=== PATIENT | female | born 1970 | race Caucasian/White ===

== ENCOUNTER 2016-11-07 09:56 | Emergency (ER) | payer BC ==
[2016-11-07 10:41] VITALS: BP 89/61
[2016-11-07] MEDS ORDERED: Acetaminophen PED LIQ* 160 MG/5 ML UDC PO ONE (11:54)
--- NOTE | 2016-11-07 11:57 | UC ---
Throat Pain/Nasal Sunny HPI - HPI Summary HPI Summary: ONSET OF SEVERE ST AND RIGHT EAR PAIN YESTERDAY. HAS FEVER TMAX 102.5. HAS SOME NAUSEA. . - History of Current Complaint Chief Complaint: UCGeneralIllness Stated Complaint: SORE THROAT Time Seen by Provider: 11/07/16 11:33 Hx Obtained From: Patient Hx Last Menstrual Period: 10/23/16 Pain Intensity: 6 Pain Scale Used: 0-10 Numeric - Allergies/Home Medications Allergies/Adverse Reactions: Allergies Allergy/AdvReac Type Severity Reaction Status Date / Time Acetaminophen [From DayQuil] Allergy Hives Verified 11/07/16 10:35 Dextromethorphan Allergy Hives Verified 11/07/16 10:35 [From DayQuil] Pseudoephedrine Allergy Hives Verified 11/07/16 10:35 [From DayQuil] [place] [facility] AdvReac Severe "Extremely Verified 10/02/15 17:37 [From Entex [place]] Drowsy and Lethargic" Erythrosine Red No. 3 AdvReac Severe "Extremely Verified 10/02/15 17:37 [From Entex [place]] Drowsy and Lethargic" Guaifenesin [From Entex [place]] AdvReac Severe "Extremely Verified 10/02/15 17:37 Drowsy and Lethargic" Phenylephrine [From Entex [place]] AdvReac Severe "Extremely Verified 10/02/15 17:37 Drowsy and Lethargic" Yellow Dye [From Entex [place]] AdvReac Severe "Extremely Verified 10/02/15 17:37 Drowsy and Lethargic" Lactose Intolerance AdvReac Stomach Verified 10/02/15 17:37 Ache, Diarrhea, Constipation Loratadine [From Claritin-D] AdvReac Tingly Verified 10/02/15 17:37 nyquil Allergy Severe Hives Uncoded 10/02/15 17:37 Home Medications: Home Medications Escitalopram (NF) [Lexapro (NF)] 2.5 mg 11/07/16 [History] Sumatriptan Succinate [Imitrex] 11/07/16 [History] PMH/Surg Hx/FS Hx/Imm Hx Endocrine History Of: Reports: Thyroid Disease, Hypothyroidism Denies: Diabetes Cardiovascular History Of: Denies: Cardiac Disorders, Hypertension, Pacemaker/ICD, Congestive Heart Failure Respiratory History Of: Denies: COPD, Asthma GI/ History Of: Denies: Ulcer, Renal Disease Cancer History Of: Denies: Breast Cancer - Surgical History Surgical History: Yes Surgery Procedure, Year, and Place: Tubal Ligation,. 2 C-Sections. D&C - Family History Known Family History: Positive: Hypertension - Social History Alcohol Use: Rare Substance Use Type: None Smoking Status (MU): Former Smoker When Did the Patient Quit Smoking/Using Tobacco: 1999 - Immunization History Most Recent Influenza Vaccination: [id number] Review of Systems Constitutional: Fever, Chills, Fatigue ENT: Sore Throat, Ear Ache Respiratory: Negative Cardiovascular: Negative Gastrointestinal: Other - NAUSEA Musculoskeletal: Myalgia All Other Systems Reviewed And Are Negative: Yes Physical Exam Triage Information Reviewed: Yes Appearance: Well-Nourished, Ill-Appearing - MODERATELY Vital Signs: Initial Vital Signs Temp 100.1 F 11/07/16 10:36 Pulse 121 11/07/16 10:36 Resp 18 11/07/16 10:36 BP 89/61 11/07/16 10:36 Pulse Ox 98 11/07/16 10:36 Vital Signs Reviewed: Yes Eyes: Positive: Conjunctiva Clear ENT: Positive: Pharyngeal erythema, Tonsillar swelling, Tonsillar exudate, Other : - RIGHT TM NOT VISUALIZED DUE TO CERUMEN. LEFT TM NORMAL Neck: Positive: Supple, Tenderness @ - SPFL CERVICAL LAD, Enlarged Nodes @ - SPFL CERVICAL LAD Respiratory Exam: Normal Cardiovascular: Positive: Tachycardia Abdomen Description: Positive: Soft Musculoskeletal: Positive: No Edema Neurological: Positive: Alert Psychological: Positive: Age Appropriate Behavior Skin: Negative: rashes Throat Pain/Nasal Course/Dx - Course Course Of Treatment: RECHECK BP 106/66 - Differential Dx/Diagnosis Differential Diagnosis/HQI/PQRI: Mononucleosis, Peritonsillar Abscess, Tonsillitis Provider Diagnoses: STREP PHARYNGITIS - CLINICAL DIAGNOSIS Discharge - Discharge Plan Condition: Stable Disposition: HOME Prescriptions: Amoxicillin SUSP* [Amoxicillin 400 MG/5 ML SUSP*] 12.5 ml PO BID #250 ml Patient Education Materials: Strep Throat (ED) Forms: *Work Release Referrals: Bayron Barron MD [Primary Care Provider] - If Needed Additional Instructions: CLINICALLY YOU HAVE STREP SO WE WILL TREAT YOU SUCH WITH 10 DAYS OF AMOXICILLIN. GO TO THE ER WITHOUT FAIL IF YOU DEVELOP DIZZINESS, CHEST PAIN, SHORTNESS OF BREATH, WORSENING PAIN OR ANY OTHER CONCERNING SX.
== END 2016-11-07 12:07 | disposition home or self-care (01) ==
LOC: UCEAST 09:56
DX: J02.0 Streptococcal pharyngitis (principal); E03.9 Hypothyroidism, unspecified; Z88.6 Allergy status to analgesic agent; Z87.891 Personal history of nicotine dependence
CPT/HCPCS: 99212; A9270-GY; G0463

== ENCOUNTER 2016-12-01 07:12 | Emergency (ER) | payer BC ==
[2016-12-01 07:31] VITALS: BP 92/58
--- NOTE | 2016-12-01 11:54 | UC ---
Hayley Casillas [place], scribed for Radha Crisostomo DO on 12/01/16 at 0752 . Throat Pain/Nasal Sunny HPI - HPI Summary HPI Summary: Patient is a 46 y/o female who presents to the with a sore throat since two days. She was seen here approximately one month ago and was diagnosed with Strep. She states that she had cellulitis on top of a peritonsillar abscess. While they attempted to drain the abscess, it was unsuccessful. She reports a scratchy feeling and a sore throat that began two days ago. She also reports a burning sensation with swallowing, general malaise, and a fever (37.6C) since yesterday. She reports taking Advil with alleviation at that point. She also states that she woke up this morning at 0330 feeling cold and shaky with a fever of 38.6C, swollen lymph nodes, cough, dull ear pain, but denies, CP, V/N/D , dysuria, frequency, or headache. Pt took Ibuprofen this morning with mild alleviation. Pts bp was 92/58 upon examination and reports it is typically 120- 110/80. Patients medication reviewed this visit. - History of Current Complaint Chief Complaint: UCGeneralIllness Stated Complaint: SORE THROAT Time Seen by Provider: 12/01/16 07:33 Hx Obtained From: Patient Hx Last Menstrual Period: 11/01/16 Onset/Duration: Gradual Onset, Lasting Days, Still Present Severity: Moderate Pain Intensity: 4 Pain Scale Used: 0-10 Numeric Cough: Nonproductive Associated Signs & Symptoms: Positive: Dysphagia - pain, Fever, Other - Cold and shaky with swollen lymph nodes, cough, dull ear pain, and sore throat.. Negative: FB Sensation, Drooling, Wheezing, Hoarseness, Sinus Discomfort, Nasal Discharge, Vomiting - Allergies/Home Medications Allergies/Adverse Reactions: Allergies Allergy/AdvReac Type Severity Reaction Status Date / Time Dextromethorphan Allergy Hives Verified 12/01/16 07:19 [From DayQuil] Pseudoephedrine Allergy Hives Verified 12/01/16 07:19 [From DayQuil] [place] [facility] AdvReac Severe "Extremely Verified 12/01/16 07:19 [From Entex [place]] Drowsy and Lethargic" Erythrosine Red No. 3 AdvReac Severe "Extremely Verified 12/01/16 07:19 [From Entex [place]] Drowsy and Lethargic" Guaifenesin [From Entex [place]] AdvReac Severe "Extremely Verified 12/01/16 07:19 Drowsy and Lethargic" Phenylephrine [From Entex [place]] AdvReac Severe "Extremely Verified 12/01/16 07:19 Drowsy and Lethargic" Yellow Dye [From Entex [place]] AdvReac Severe "Extremely Verified 12/01/16 07:19 Drowsy and Lethargic" Lactose Intolerance AdvReac Stomach Verified 12/01/16 07:19 Ache, Diarrhea, Constipation Loratadine [From Claritin-D] AdvReac Tingly Verified 12/01/16 07:19 nyquil Allergy Severe Hives Uncoded 12/01/16 07:19 PMH/Surg Hx/FS Hx/Imm Hx Endocrine History Of: Reports: Thyroid Disease, Hypothyroidism Denies: Diabetes Cardiovascular History Of: Denies: Cardiac Disorders, Hypertension, Pacemaker/ICD, Congestive Heart Failure Respiratory History Of: Denies: COPD, Asthma GI/ History Of: Denies: Ulcer, Renal Disease Neurological History Of: Reports: Seizures Psychological History Of: Reports: Depression Cancer History Of: Denies: Breast Cancer - Surgical History Surgical History: Yes Surgery Procedure, Year, and Place: Tubal Ligation,. 2 C-Sections. D&C - Family History Known Family History: Positive: Cardiac Disease - Father @ 57 y/o., Hypertension , Other - PE. Depresssion. Anxiety. - Social History Occupation: Employed Full-time Alcohol Use: Rare Substance Use Type: None Smoking Status (MU): Former Smoker When Did the Patient Quit Smoking/Using Tobacco: 1999 - Immunization History Most Recent Influenza Vaccination: [id number] Review of Systems Constitutional: Fever - (37.6C, 38.6C), Other - General malaise. "Cold and shaky ". Skin: Negative Eyes: Negative ENT: Sore Throat, Ear Ache, Other - Scratchy feeling, burning sensation with swallowing." Swollen lymph nodes. Respiratory: Cough Cardiovascular: Negative Gastrointestinal: Negative Genitourinary: Negative All Other Systems Reviewed And Are Negative: Yes Physical Exam Triage Information Reviewed: Yes Appearance: Well-Appearing, Well-Nourished, Pain Distress Vital Signs: Initial Vital Signs Temp 97.6 F 12/01/16 07:22 Pulse 112 12/01/16 07:22 Resp 16 12/01/16 07:22 BP 92/58 12/01/16 07:22 Pulse Ox 98 12/01/16 07:22 Vital Signs Reviewed: Yes Eyes: Positive: Conjunctiva Clear. Negative: Discharge ENT: Positive: Hearing grossly normal, TMs normal, Tonsillar swelling, Tonsillar exudate, Other: - Palate symmetrical. Tonsil swollen. Erythema. Tender lymphadenopathy, worse on right than left. No trismus. [place] petechiae.. Negative: Trismus, Muffled/hoarse voice Neck exam: Normal Neck: Positive: Supple Respiratory: Positive: Lungs clear, Normal breath sounds, No respiratory distress, No accessory muscle use Cardiovascular: Positive: No Murmur, Tachycardia - Mild. Abdomen Description: Positive: Nontender, Soft. Negative: Distended, Guarding Bowel Sounds: Positive: Present Musculoskeletal Exam: Normal Neurological: Positive: Alert, Muscle Tone Normal Psychological: Positive: Normal Response To Family, Age Appropriate Behavior Skin Exam: Normal, Other - Warm, Dry, Normal color. Diagnostics - Laboratory Diagnostic Studies Completed/Ordered: Group A Strep Rapid: positive Throat Pain/Nasal Course/Dx - Differential Dx/Diagnosis Differential Diagnosis/HQI/PQRI: Pharyngitis, Sinusitis, Tonsillitis, URI Provider Diagnoses: Strep throat. Discharge - Discharge Plan Condition: Stable Disposition: HOME Prescriptions: Amoxicillin/Clavulanate SUSP* [Augmentin SUSP*] 880 mg PO BID #1 btl Amoxicillin/Clavulanate TAB* [Augmentin TAB 875*] 875 mg PO BID #20 tab predniSONE TAB* [Deltasone TAB*] 40 mg PO DAILY #10 tab Patient Education Materials: Strep Throat (ED) Referrals: Joshua Colon MD [Medical Doctor] - 2 Days (FOLLOW UP IN 2 DAYS IF NOT IMPROVING. FOLLOW UP SOONER IF SYMPTOMS WORSEN OR NEW SYMPOTMS DEVELOP.) Bayron Barron MD [Primary Care Provider] - If Needed Additional Instructions: AUGMENTIN: Augmentin is a mixture of amoxicillin and clavulanate. Amoxicillin is a member of the penicillin family. It covers the germs likely to cause ear, bronchial, and urinary infections better than plain penicillin. The addition of clavulanate allows it to cover staph infections of the skin, as well as resistant cases of ear and sinus infections. Your physician has chosen Augmentin for you because of the special nature of your situation. Augmentin is best taken with meals. Nausea after taking the medication is rare, but can occur. Diarrhea can occur, particularly in small children. Vaginal yeast infections, and oral thrush in infants are also common. Contact your physician if these problems occur. Allergy to penicillins is common. If you have had an allergic reaction to any drug of the penicillin family, you should never take any other penicillin. Notify your doctor at once if you develop hives, shortness of breath, swelling, or faintness. ANY TIME YOU TAKE AN ANTIBIOTIC, IT IS IMPORTANT TO REPLENISH THE BODY'S BALANCE OF "GOOD" BACTERIA BY EATING HIGH QUALITY CULTURED FOOD SUCH YOGURT, SAURKRAUT OR RACH CHI AND/OR TAKING A PROBIOTIC SUPPLEMENT. DISCUSSED, TRY MAGIC MOUTHWASH TO CONTROL PAIN PRIOR TO EATING. CORTICOSTEROID MEDICATION: You have been given a medicine of the cortisone class. This medication is used to control inflammation or allergy. It is usually only given for a short period of time, until the acute process subsides. There are usually no side effects from short-term use of cortisone-like medications. Some persons feel an increased sense of well-being and are not sleepy at bedtime. Long-term use of cortisone medications is best avoided, unless required for a severe condition. If your condition does not remit, or relapses after the course of corticosteroid medication, you should consult your physician. Contact the physician if you develop lightheadedness, black or tarry stools , swelling of the legs, or significant rapid change in weight. The documentation as recorded by the Hayley palomo [place] accurately reflects the service I personally performed and the decisions made by me, Radha Crisostomo DO.
== END 2016-12-01 08:18 | disposition home or self-care (01) ==
LOC: UCEAST 07:12
DX: J02.0 Streptococcal pharyngitis (principal); E03.9 Hypothyroidism, unspecified; Z88.8 Allergy status to other drugs, medicaments and biological substances; Z91.011 Allergy to milk products
CPT/HCPCS: 87651; 99212; G0463

== ENCOUNTER 2017-09-02 07:13 | Emergency (ER) | payer BC ==
[2017-09-02 07:33] VITALS: BP 118/67
--- NOTE | 2017-09-02 07:36 | UC ---
Respiratory Complaint HPI - HPI Summary HPI Summary: 47 yo female ill x 10 days Diagnosed with the flu cough better fever gone myalgias gone now with severe sinus pressure and pain upper gums and teeth sensitive - History of Current Complaint Chief Complaint: UCGeneralIllness Stated Complaint: SINUS ISSUE Time Seen by Provider: 09/02/17 07:29 Hx Obtained From: Patient Hx Last Menstrual Period: 08/29/17 Onset/Duration: Gradual Onset Timing: Constant Severity Initially: Severe Severity Currently: Mild Pain Intensity: 4 Character: Cough: Nonproductive Associated Signs And Symptoms: Positive: Nasal Congestion, Sinus Discomfort - Allergies/Home Medications Allergies/Adverse Reactions: Allergies Allergy/AdvReac Type Severity Reaction Status Date / Time MS Dextromethorphan Allergy Hives Verified 09/02/17 07:24 [From DayQuil] MS Pseudoephedrine Allergy Hives Verified 09/02/17 07:24 [From DayQuil] [place] [facility] AdvReac Severe "Extremely Verified 09/02/17 07:24 [From Entex [place]] Drowsy and Lethargic" MS Erythrosine Red No. 3 AdvReac Severe "Extremely Verified 09/02/17 07:24 [From Entex [place]] Drowsy and Lethargic" MS Guaifenesin AdvReac Severe "Extremely Verified 09/02/17 07:24 [From Entex [place]] Drowsy and Lethargic" MS Phenylephrine AdvReac Severe "Extremely Verified 09/02/17 07:24 [From Entex [place]] Drowsy and Lethargic" MS Yellow Dye [From Entex [place]] AdvReac Severe "Extremely Verified 09/02/17 07:24 Drowsy and Lethargic" MS Lactose Intolerance AdvReac Stomach Verified 09/02/17 07:24 [Lactose Intolerance] Ache, Diarrhea, Constipation MS Loratadine AdvReac Tingly Verified 09/02/17 07:24 [From Claritin-D] nyquil Allergy Severe Hives Uncoded 09/02/17 07:24 PMH/Surg Hx/FS Hx/Imm Hx Previously Healthy: Yes Cardiovascular History: Hypertension - Surgical History Surgical History: Yes Surgery Procedure, Year, and Place: Tubal Ligation,. 2 C-Sections. D&C - Family History Known Family History: Positive: Cardiac Disease - Father @ 57 y/o., Hypertension , Other - PE. Depresssion. Anxiety. - Social History Alcohol Use: Rare Substance Use Type: None Smoking Status (MU): Former Smoker When Did the Patient Quit Smoking/Using Tobacco: 2000 - Immunization History Most Recent Influenza Vaccination: [id number] Review of Systems Constitutional: Fever - resolved, Chills - resolved, Fatigue Skin: Negative Eyes: Negative ENT: Dental Pain, Nasal Discharge, Sinus Congestion, Sinus Pain/Tenderness Respiratory: Cough Cardiovascular: Negative Gastrointestinal: Negative Genitourinary: Negative Motor: Negative Neurovascular: Negative Musculoskeletal: Negative Neurological: Negative Psychological: Negative Is Patient Immunocompromised?: No All Other Systems Reviewed And Are Negative: Yes Physical Exam Triage Information Reviewed: Yes Appearance: Well-Appearing, No Pain Distress, Well-Nourished Vital Signs: Initial Vital Signs Temp 97.4 F 09/02/17 07:26 Pulse 93 09/02/17 07:26 Resp 16 09/02/17 07:26 BP 118/67 09/02/17 07:26 Pulse Ox 99 09/02/17 07:26 Eyes: Positive: Conjunctiva Clear ENT: Positive: Hearing grossly normal, Nasal congestion, Nasal drainage, Sinus tenderness, Uvula midline. Negative: Tonsillar swelling, Tonsillar exudate, Trismus, Muffled voice, Hoarse voice Neck: Positive: Supple, Nontender, No Lymphadenopathy Respiratory: Positive: Lungs clear, Normal breath sounds, No respiratory distress, No accessory muscle use Cardiovascular: Positive: RRR, No Murmur Musculoskeletal: Positive: ROM Intact, No Edema Neurological: Positive: Alert Psychological Exam: Normal Skin Exam: Normal UC Diagnostic Evaluation - Laboratory O2 Sat by Pulse Oximetry: 99 - normal/not hypoxic Respiratory Course/Dx - Differential Dx/Diagnosis Provider Diagnoses: acute sinusitis Discharge - Discharge Plan Condition: Stable Disposition: HOME Prescriptions: Amoxicillin/Clavulanate SUSP* [Augmentin SUSP*] 800 mg PO BID #200 btl Patient Education Materials: Sinusitis (ED) Referrals: Bayron Barron MD [Primary Care Provider] - 5 Days (if not better) Additional Instructions: rest warm facial compresses saline nasal spray twice daily recheck for new or worsening symptoms
== END 2017-09-02 07:43 | disposition home or self-care (01) ==
LOC: UCEAST 07:13
DX: J01.90 Acute sinusitis, unspecified (principal); I10 Essential (primary) hypertension; Z88.8 Allergy status to other drugs, medicaments and biological substances; Z87.891 Personal history of nicotine dependence
CPT/HCPCS: 99212; G0463

== ENCOUNTER 2018-06-20 14:09 | Emergency (ER) | payer BC ==
--- NOTE | 2018-06-20 14:19 | UC ---
Respiratory Complaint HPI - HPI Summary HPI Summary: Patient presents to urgent care stating approximately one week she had cough congestion and laryngitis. Patient states she felt better over last weekend. Patient states starting on Sunday her voice started a scratchy. Patient with thick postnasal drip and sinus congestion. Patient states she's has a persistent cough with nonproductive sputum. Patient states she is unclear whether she is coughing. Her lungs were from postnasal drip. Patient also with a sore throat. Patient has taken Motrin Tylenol with little improvement. Patient states her coughing is worse at night. Patient has not taken any antitussives. Patient denies rash. No chest pain. No abdominal pain. No nausea/vomiting. 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 Patient denies any myalgias. Patient states she's not medications and allergies reviewed - History of Current Complaint Stated Complaint: COUGH, CHEST CONGESTION Hx Obtained From: Patient Hx Last Menstrual Period: 08/29/17 Onset/Duration: Gradual Onset Timing: Constant Severity Initially: Mild Severity Currently: Mild Pain Scale Used: 0-10 Numeric - Allergies/Home Medications Allergies/Adverse Reactions: Allergies Allergy/AdvReac Type Severity Reaction Status Date / Time dextromethorphan Allergy Hives Verified 06/20/18 14:17 guaifenesin [From Entex [place]] Allergy See Comment Verified 06/20/18 14:17 lactose Allergy GI Upset Verified 06/20/18 14:17 loratadine [From Claritin-D] Allergy See Comment Verified 06/20/18 14:17 phenylephrine [From Entex [place]] Allergy See Comment Verified 06/20/18 14:17 phenylpropanolamine Allergy See Comment Verified 06/20/18 14:17 [From Entex [place]] pseudoephedrine Allergy Hives Verified 06/20/18 14:17 nyquil Allergy Severe Hives Uncoded 09/02/17 07:24 Home Medications: Home Medications LORazepam [Ativan 0.5 MG TAB] 0.5 mg PO BEDTIME 06/20/18 [History Confirmed ] PARoxetine HCL TAB* [Paxil TAB*] 10 mg PO DAILY 06/20/18 [History Confirmed ] PMH/Surg Hx/FS Hx/Imm Hx Previously Healthy: Yes - Surgical History Surgical History: Yes Surgery Procedure, Year, and Place: Tubal Ligation,. 2 C-Sections. D&C - Family History Known Family History: Positive: Cardiac Disease - Father @ 57 y/o., Hypertension , Other - PE. Depresssion. Anxiety. - Social History Occupation: Employed Full-time Lives: Alone Alcohol Use: Rare Substance Use Type: None Smoking Status (MU): Former Smoker When Did the Patient Quit Smoking/Using Tobacco: 1999 - Immunization History Most Recent Influenza Vaccination: [id number] Review of Systems All Other Systems Reviewed And Are Negative: Yes Constitutional: Positive: Fatigue ENT: Positive: Sore Throat, Nasal Discharge, Sinus Congestion, Sinus Pain/ Tenderness Respiratory: Positive: Cough. Negative: Shortness Of Breath Cardiovascular: Positive: Negative. Negative: Chest Pain Gastrointestinal: Negative: Abdominal Pain, Nausea Physical Exam - Summary Physical Exam Summary: Vital Signs Reviewed: Yes A+Ox3, no distress Eyes: Conjunctiva Clear, DALE. EOM intact and full ENT: Hearing grossly normal scant fluid right ear, no fluid left turbinates inflammed and boggy thick secretion, thick PND, mmoist, uvula midline, no exudate, no erythema Neck: Positive: Supple Respiratory: Positive: No respiratory distress, No accessory muscle use + CTA throughout no w/r mild intermittent cough Cardiovascular: RRR nl s1, s2 no m/r CBT <2 sec abd soft + BS nt/nd no guarding, no distension Musculoskeletal Exam: JUNG x 4 without difficulty Strength Intact, ROM Intact Neurological: Positive: Alert, + sensation throughout Psychological: Positive: Normal Response To Family Skin: Positive: no rash, no ecchymosis Triage Information Reviewed: Yes Respiratory Course/Dx - Course Course Of Treatment: Pt with haed congestion x 7 days - improved - returned 2 days ago. Pt with coarse cough, sinus congestion and pressure, PND and fatigue. No documented fever. VSS. On exam, pt with laryngitis. exam c/w sinusitis and PND. Rx abx, pred. hydrate. motrin/apap. declined tessalon pearls. return precautions. secrtion precation. hygeine - Differential Dx/Diagnosis Provider Diagnoses: rhinosinusitis Discharge - Sign-Out/Discharge Documenting (check all that apply): Patient Departure All imaging exams completed and their final reports reviewed: No Studies - Discharge Plan Condition: Stable Disposition: HOME Prescriptions: Cefdinir [Cefdinir 300 MG CAP] 300 mg PO BID #20 capsule predniSONE TAB* [Deltasone TAB*] 50 mg PO DAILY #5 tab Patient Education Materials: Rhinosinusitis (ED) Referrals: Bayron Barron MD [Primary Care Provider] - Additional Instructions: - Take antibiotics and prednisone exactly as prescribed until gone - Stay well hydrated - avoid excess caffeine and all alcohol - eat regular, healthy meals - gargle and spit with warm, salt water every 4 hours - humidify the air in the room where you sleep - boil water, run a hot steam shower, vaporizer, cups of water by heat register - okay to take over the counter decongestant and cough medication - These infections are spread by secretions - do NOT share eating or drinking utensils - clean items you share with other people such as cell phones, computer mouse, TV remote, computer tablets,etc.. Once you have been antibiotics for 2 days, change your toothbrush and your pillowcase. - -Contact your doctor to arrange a follow-up appointment this week. Call your doctor, return here or go to the emergency department with any questions or concerns - Billing Disposition and Condition Condition: STABLE Disposition: Home
[2018-06-20 14:25] VITALS: BP 127/68
== END 2018-06-20 14:43 | disposition home or self-care (01) ==
LOC: UCCORT 14:09
DX: J32.9 Chronic sinusitis, unspecified (principal); Z88.8 Allergy status to other drugs, medicaments and biological substances; Z87.891 Personal history of nicotine dependence
CPT/HCPCS: 99212; G0463